=== PATIENT | female | born 1950 ===

== ENCOUNTER 2018-12-24 21:15 | Inpatient (IN) | payer MEDICARE, MEDICAID ==
[~2018-12-24] VITALS: Ht 172.7 cm; Wt 126.6 kg
[2018-12-28 13:04] VITALS: BP 114/70
== END 2018-12-28 14:23 | disposition home or self-care (01) | DRG 377 ==
LOC: OR 21:15 → 4NOR 22:46 → OR 23:00 → 4NOR 23:01
PROVIDERS: ADMIT Internal Medicine; ATTEND Internal Medicine
PROC: 30233N1 Transfusion of Nonautologous Red Blood Cells into Peripheral Vein, Percutaneous Approach (ICD-10-PCS; 2018-12-26)
PROC: 0DJD8ZZ Inspection of Lower Intestinal Tract, Via Natural or Artificial Opening Endoscopic (ICD-10-PCS; principal; 2018-12-27)
PROC: 0D598ZZ Destruction of Duodenum, Via Natural or Artificial Opening Endoscopic (ICD-10-PCS; 2018-12-27)
DX: K31.811 Angiodysplasia of stomach and duodenum with bleeding (principal); J96.20 Acute and chronic respiratory failure, unspecified whether with hypoxia or hypercapnia; B18.1 Chronic viral hepatitis B without delta-agent; K57.31 Diverticulosis of large intestine without perforation or abscess with bleeding; D17.5 Benign lipomatous neoplasm of intra-abdominal organs; D50.9 Iron deficiency anemia, unspecified; E11.9 Type 2 diabetes mellitus without complications; E86.0 Dehydration; G89.29 Other chronic pain; I11.0 Hypertensive heart disease with heart failure; I48.91 Unspecified atrial fibrillation; J44.9 Chronic obstructive pulmonary disease, unspecified; I50.9 Heart failure, unspecified; D12.2 Benign neoplasm of ascending colon; K64.8 Other hemorrhoids; Z72.0 Tobacco use; Z79.01 Long term (current) use of anticoagulants; Z79.82 Long term (current) use of aspirin; Z79.899 Other long term (current) drug therapy; Z99.81 Dependence on supplemental oxygen
CPT/HCPCS: 36415; 71045; 80048; 80053; 80162; 82803; 83540; 83550; 85025; 85610; 93005; 94640; G0378; J2405; J2704; J7620; J7644; C9113; J1940; J7030